=== PATIENT | male | born 1985 ===

== ENCOUNTER 2017-10-08 14:00 | Emergency (ER) | payer OTHER ==
[2017-10-08] MEDS ORDERED: Ketorolac 60 MG/2 ML SDV IM ONE (14:14)
--- NOTE | 2017-10-08 14:21 | EDM.PDOC ---
ED HPI GENERAL MEDICAL PROBLEM - General Chief Complaint: Back Pain or Injury Stated Complaint: LOWER BACK PAIN Time Seen by Provider: 10/08/17 14:08 Source of Information: Reports: Patient History Limitations: Reports: No Limitations - History of Present Illness INITIAL COMMENTS - FREE TEXT/NARRATIVE: HISTORY AND PHYSICAL: History of present illness: Patient is a 32-year-old male who presents to the emergency room today with complaints of right low back pain. He states yesterday he got called into work at approximately 3 AM, he bent down to pick "something up" and when he stood up and felt sharp pain to his right low back. He proceeded to go to work and when he returned home this morning he went to bed. Upon awakening around 9 AM, he was in increased pain and unable to get up and stand straight. Pain is above the right posterior iliac crest and radiates down the posterior gluteal and thigh. He denies any numbness or tingling to the distal extremities. Denies any dysuria or difficulty starting his stream. No change in his bowel movements. Not been incontinent of urine or stool. Denies any recent trauma or injury. Denies any previous back injury or surgeries. Review of systems: As per history of present illness and below otherwise all systems reviewed and negative. Past medical history: As per history of present illness and as reviewed below otherwise noncontributory. Surgical history: As per history of present illness and as reviewed below otherwise noncontributory. Social history: No reported history of drug or alcohol abuse. Family history: As per history of present illness and as reviewed below otherwise noncontributory. Physical exam: Gen.: Well-developed and well-nourished 32-year-old male. Alert and oriented. Appears in no acute distress. HEENT: Atraumatic, normocephalic, pupils reactive, negative for conjunctival pallor or scleral icterus, mucous membranes moist, throat clear, neck supple, nontender, trachea midline. Lungs: Clear to auscultation, breath sounds equal bilaterally, chest nontender. Heart: S1S2, regular, negative for clicks, rubs, or JVD. Abdomen: Soft, nondistended, nontender. Negative for masses or hepatosplenomegaly. Negative for costovertebral tenderness. Pelvis: Stable nontender. Genitourinary: Deferred. Rectal: Deferred. C-Spine/Back: Extremities: Atraumatic, negative for cords or calf pain. Neurovascular unremarkable. Neuro: Awake, alert, oriented. Cranial nerves II through XII unremarkable. Cerebellum unremarkable. Motor and sensory unremarkable throughout. Exam nonfocal. Patient's position of comfort is hunched over, bent at the waist. He is able to stand straight up, erect- but this does cause pain to the right low back. I did observe the patient ambulating without assistance. X-ray shows mild degenerative changes. Moderate narrowing of L4 and L5 interspaces area no acute fractures or subluxation in the lumbar spine. We did review the prescriptions he will be receiving. Reviewed the appropriate time to take which. If he continues to have pain he needs to follow-up with his primary care provider as an MRI would be warranted. Patient and voice understanding and are agreeable to plan of care. Denies any further issues at this time. Diagnostics: Lumbar spine x-ray Therapeutics: Toradol and Norflex Impression: Back pain with sciatica Plan: 1. Please take your medications as prescribed. Cataflam 50mg, 1 tab up to 3 times daily as needed. Do not take this medication with additional NSAIDs such as ibuprofen or Aleve. May want to take this with food. Flexeril 10 mg, 1 tab up to 3 times daily as needed. This medication is a muscle relaxer and may cause drowsiness. So do not take this while needing to be driving or functioning at work. A Medrol Dosepak, steroid, has been prescribed to help with the inflammation. Please take as directed. A limited amount of Waldo has been prescribed for you. Please reserve this medication for nighttime use. This medication is a narcotic. 2. Gentle heat and stretching to the area. Please avoid being immobile as this will cause further pain and complications in your recovery. 3. Please follow-up with your primary care provider in the next 1-2 days. Return to the ED as needed and as discussed. Definitive disposition and diagnosis as appropriate pending reevaluation and review of above. Onset: Today Duration: Hour(s): Location: Reports: Back right lower back Pain Score (Numeric/FACES): 10 - Related Data Allergies Allergy/AdvReac Type Severity Reaction Status Date / Time No Known Allergies Allergy Verified 10/08/17 14:14 Home Meds: Home Meds . [No Known Home Meds] 10/08/17 [History] ED ROS GENERAL - Review of Systems Review Of Systems: ROS reveals no pertinent complaints other than HPI. ED EXAM,LOWER BACK PAIN/INJURY - Physical Exam Exam: See Below (See dictation) Course - Vital Signs Last Recorded V/S: Last Vital Signs Temp 98.0 F 10/08/17 14:15 Pulse 98 10/08/17 14:15 Resp 18 10/08/17 14:15 BP 129/76 10/08/17 14:15 Pulse Ox 100 10/08/17 14:15 - Orders/Labs/Meds Orders: Active Orders 24 hr Category Date Time Status Lumbar Spine 2 or 3V [CR] Stat Exams 10/08/17 14:14 Taken Orphenadrine [Norflex] Med 10/08/17 14:15 Active 60 mg IM Q12H Medication Orders Orphenadrine Citrate (Norflex) 60 mg IM Q12H MADINA Last Admin: 10/08/17 15:03 Dose: 60 mg Meds: Medications Generic Name Dose Route Start Last Admin Trade Name Freq PRN Reason Stop Dose Admin Orphenadrine Citrate 60 mg 10/08/17 14:15 10/08/17 15:03 Norflex IM 60 mg Q12H MADINA Administration Discontinued Medications Generic Name Dose Route Start Last Admin Trade Name Freq PRN Reason Stop Dose Admin Ketorolac Tromethamine 60 mg 10/08/17 14:14 10/08/17 15:03 Toradol IM 10/08/17 14:15 60 mg ONETIME ONE Administration Departure - Departure Time of Disposition: 15:41 Disposition: Home, Self-Care 01 Clinical Impression: Back pain with sciatica - Discharge Information Referrals: PCP,None [Primary Care Provider] - Forms: ED Department Discharge Additional Instructions: My general discharge The following information is given to patients seen in the emergency department who are being discharged to home. This information is to outline your options for follow-up care. We provide all patients seen in our emergency department with a follow-up referral. The need for follow-up, as well as the timing and circumstances, are variable depending upon the specifics of your emergency department visit. If you don't have a primary care physician on staff, we will provide you with a referral. We always advise you to contact your personal physician following an emergency department visit to inform them of the circumstance of the visit and for follow-up with them and/or the need for any referrals to a consulting specialist. The emergency department will also refer you to a specialist when appropriate. This referral assures that you have the opportunity for follow-up care with a specialist. All of these measure are taken in an effort to provide you with optimal care, which includes your follow-up. Under all circumstances we always encourage you to contact your private physician who remains a resource for coordinating your care. When calling for follow-up care, please make the office aware that this follow-up is from your recent emergency room visit. If for any reason you are refused follow-up, please contact the [facility] Emergency Department at and asked to speak to the emergency department charge nurse. [facility] [address] [place] [id number] 1. Please take your medications as prescribed. Cataflam 50mg, 1 tab up to 3 times daily as needed. Do not take this medication with additional NSAIDs such as ibuprofen or Aleve. May want to take this with food. Flexeril 10 mg, 1 tab up to 3 times daily as needed. This medication is a muscle relaxer and may cause drowsiness. So do not take this while needing to be driving or functioning at work. A Medrol Dosepak, steroid, has been prescribed to help with the inflammation. Please take as directed. A limited amount of Waldo has been prescribed for you. Please reserve this medication for nighttime use. This medication is a narcotic. 2. Gentle heat and stretching to the area. Please avoid being immobile as this will cause further pain and complications in your recovery. 3. Please follow-up with your primary care provider in the next 1-2 days. Return to the ED as needed and as discussed. - My Orders Last 24 Hours: My Active Orders 10/08/17 14:14 Lumbar Spine 2 or 3V [CR] Stat 10/08/17 14:15 Orphenadrine [Norflex] 60 mg IM Q12H - Assessment/Plan Last 24 Hours: My Active Orders 10/08/17 14:14 Lumbar Spine 2 or 3V [CR] Stat 12/16/17 14:15 Orphenadrine [Norflex] 60 mg IM Q12H
--- NOTE | 2017-10-10 14:06 | CR ---
EXAM DATE: 10/08/17 PATIENT'S AGE: 32 Patient: KVNG GARCIA Facility: [place], [place] Site . Site : 1985 Study: XRay Spine Lumbar [id number] 2:36:06 PM Ordering Physician: Doctor Mcneill Final Report: INDICATION: Pain. Technique: Three views lumbar spine. Findings: Mild degenerate hypertrophic changes in the lumbar spine. No acute fracture or subluxation in lumbar spine. Mild degenerative changes in the lobe mid and lower lumbar facet joints. Moderate narrowing of the L4 and L5 interspaces. Mild lumbar curve. Remainder negative. Dictated by Robby Bond MD @ Oct 08 2017 3:34PM (Electronic Signature) Report Signed by Proxy. LEANA
== END 2017-10-08 16:19 | disposition home or self-care (01) ==
LOC: MW.ED 14:00
DX: M54.41 Lumbago with sciatica, right side (principal)
CPT/HCPCS: 72100; 96372; 99283; J1885; J2360; 99284